=== PATIENT | female | born 1935 | race Caucasian/White ===

== ENCOUNTER → 2019-01-22 | Outpatient (CLI) | payer OTHER ==
[~2019-01-22] MED LIST: ALIS300T PO; ASPI-630 PO; CHOL200074 PO; HYDR1POW19 MC; LANS30CA PO; LEVO75TA PO; OMEG500C PO; VALS320T2 PO; [UNRECOGNIZED DRUG - CODE] PO
--- NOTE | 2019-01-22 09:58 | RAD ---
Exam performed: 2 views of the chest. Indication: Cough and congestion Date of Service: 01/22/2019 12:00 AM . Comparison : None available Findings: PA and lateral radiographs of the chest reveal a mildly enlarged cardiomediastinal contour. There is a moderate hiatal hernia. There are 2 small nodules in the right upper lobe, remainder lungs are clear. No pleural fluid is seen. The visualized osseous structures are unremarkable. Impression: 1. Borderline cardiomegaly without acute bony findings. 2. Moderate hiatal hernia 3. Small nodules right upper lobe calcified and related to remote granulomatous infection. Comparison with any previous chest x-rays if available may be useful. Electronically signed by: Unique Booker MD (01/22/2019 9:55 AM) [facility]
== END | disposition home or self-care (01) ==
LOC: PMG 09:14
PROVIDERS: ATTEND Physician Assistant Medical
DX: K44.9 Diaphragmatic hernia without obstruction or gangrene (principal); J06.9 Acute upper respiratory infection, unspecified; I51.7 Cardiomegaly; R91.8 Other nonspecific abnormal finding of lung field
CPT/HCPCS: 71046